=== PATIENT | male | born 1965 | race Caucasian/White ===

== ENCOUNTER 2018-01-20 14:23 | Emergency (ER) | payer OTHER, BC ==
[2018-01-20] MEDS: ONDANSETRON 4 MG INJ IV (14:42)
[2018-01-20] MEDS: SOD CHLORIDE 0.9% 1,000 ML IV (14:42)
[2018-01-20 14:58] LABS: ADD MAN DIFF? NO
[2018-01-20 15:06] LABS: ABNORMAL IP MESSAGE 1; BASOPHILS % 0.2 % (0.0-2.0); HEMATOCRIT 42.5 % (42.0-52.0); HEMOGLOBIN 13.7 g/dl (14.0-18.0); LYMPHOCYTES # 0.5 10^3/ul (0.8-2.9); LYMPHOCYTES % 5.2 % (15.0-51.0); MEAN CORPUSCULAR HEMOGLOBIN 26.6 pg (29.0-33.0); MEAN CORPUSCULAR HGB CONC 32.2 g/dl (32.0-37.0); MEAN CORPUSCULAR VOLUME 82.5 fl (82.0-101.0); MEAN PLATELET VOLUME 10.6 fl (7.4-10.4); MONOCYTE # 0.5 10^3/ul (0.3-0.9); MONOCYTES % 4.6 % (0.0-11.0); NEUTROPHILS % 89.7 % (39.0-77.0); PLATELET COUNT 197 10^3/UL (140-415); POSITIVE DIFF @See below; RED BLOOD COUNT 5.15 10^6/ul (4.70-6.10); RED CELL DISTRIBUTION WIDTH 13.3 % (11.5-14.5)
[2018-01-20 15:34] LABS: ALANINE AMINOTRANSFERASE 46 IU/L (13-69); ALBUMIN 3.8 g/dl (3.3-4.9); ALBUMIN/GLOBULIN RATIO 1.35; ALKALINE PHOSPHATASE 62 IU/L (42-121); ANION GAP 15 (8-16); ASPARTATE AMINO TRANSFERASE 25 IU/L (15-46); BILIRUBIN,INDIRECT 0.4 mg/dl (0-1.1); BILIRUBIN,TOTAL 0.4 mg/dl (0.2-1.3); BLOOD UREA NITROGEN 16 mg/dl (7-20); CALCIUM 9.1 mg/dl (8.4-10.2); CARBON DIOXIDE 25 mmol/L (21-31); CHLORIDE 103 mmol/L (97-110); CREATININE 0.83 mg/dl (0.61-1.24); GLUCOSE 187 mg/dl (70-220); LIPASE 47 U/L (23-300); POTASSIUM 3.6 mmol/L (3.5-5.1); SODIUM 139 mmol/L (135-144); TOTAL PROTEIN 6.6 g/dl (6.1-8.1)
[2018-01-20 16:07] LABS: ADD UMIC NO; UR ASCORBIC ACID NEGATIVE (NEGATIVE); UR BILIRUBIN (Dip) NEGATIVE (NEGATIVE); UR BLOOD (Dip) NEGATIVE (NEGATIVE); UR CLARITY CLEAR (CLEAR); UR COLOR YELLOW (YELLOW); UR GLUCOSE (Dip) NEGATIVE (NEGATIVE); UR KETONES (Dip) 1+ mg/dL (NEGATIVE); UR LEUKOCYTE ESTERASE (Dip) NEGATIVE Leu/ul (NEGATIVE); UR NITRITE (Dip) NEGATIVE (NEGATIVE); UR SPECIFIC GRAVITY (Dip) 1.024 (1.003-1.030); UR TOTAL PROTEIN (Dip) NEGATIVE (NEGATIVE); UR UROBILINOGEN (Dip) NEGATIVE (NEGATIVE)
== END 2018-01-20 16:08 | disposition home or self-care (01) ==
LOC: E/R 14:23
DX: R11.2 Nausea with vomiting, unspecified (principal)
CPT/HCPCS: 36415; 74176; 80053; 81003; 83690; 85025; 96374; 99285-25